=== PATIENT | female | born 1990 | race Caucasian/White ===

== ENCOUNTER 2021-08-26 22:08 | Emergency (ER) | payer BC ==
[2021-08-26] MEDS ORDERED: Morphine 4 MG/ML Syringe IVPUSH ONE (22:33)
[2021-08-26] MEDS ORDERED: Lidocaine 1% with EPINEPHrine 1:100,000 20 ML MDV INJECT ONE ×3 (22:38→23:09)
[2021-08-26] MEDS ORDERED: Midazolam 1 MG/ML 2 ML SDV IVPUSH ONE (22:55)
[2021-08-26] MEDS ORDERED: Lidocaine 1% with EPINEPHrine 1:100,000 20 ML MDV ONE (23:09)
[2021-08-27] MEDS ORDERED: Ketamine 500 mg/10 ML MDV IV ONE ×3 (00:21→01:39)
[2021-08-27] MEDS ORDERED: Morphine 4 MG/ML Syringe IVPUSH ONE (00:46)
[2021-08-27] MEDS ORDERED: Ondansetron 4 MG/2 ML SDV IVPUSH ONE (00:46)
--- NOTE | 2021-08-27 01:04 | EDM.PDOC ---
ED HPI GENERAL MEDICAL PROBLEM - General Chief Complaint: Lower Extremity Injury/Pain Stated Complaint: [facility] Time Seen by Provider: 08/26/21 22:25 Source of Information: Reports: Patient History Limitations: Reports: Intoxication - History of Present Illness INITIAL COMMENTS - FREE TEXT/NARRATIVE: Patient is a 30-year-old female presenting to the emergency room with a complaint of right ankle pain. Patient was out with friends drinking tonight. She states she stepped out of a pickup truck and slipped on some ice. Patient reports immediate pain in her ankle with deformity. Patient was unable to bear weight. Patient did arrive via EMS. She was treated with pain medications prior to arrival. Otherwise, she denies any additional injury. Denies any num bness or tingling of the foot. No prior foot or ankle surgeries. 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: IV/IO Other Treatments JUNIOR BOOKKEEPER: 1 mg dilaudid, 4 mg zofran Right Ankle Pain Score (Numeric/FACES): 7 - Related Data Allergies Allergy/AdvReac Type Severity Reaction Status Date / Time tramadol Allergy Shaking Verified 08/26/21 22:12 Home Meds: Home Meds Sertraline HCl [Zoloft] 200 mg PO BEDTIME 08/26/21 [History] hydrOXYzine HCL [Hydroxyzine HCl] 10 - 15 mg PO DAILY 08/26/21 [History] traZODone HCl [Trazodone HCl] 25 - 50 mg PO BEDTIME 08/26/21 [History] Past Medical History Psychiatric History: Reports: Anxiety Endocrine/Metabolic History: Reports: Obesity/BMI 30+ - Past Surgical History GI Surgical History: Reports: Bariatric Procedure Neurological Surgical History: Reports: Other (See Below) Other Neurological Surgeries/Procedures: meningioma removal Social & Family History - Tobacco Use Tobacco Use Status *Q: Never Tobacco User - Alcohol Use Days Per Week of Alcohol Use: 1 Number of Drinks Per Day: 7 Total Drinks Per Week: 7 - Recreational Drug Use Recreational Drug Use: Yes Drug Use in Last 12 Months: Yes Recreational Drug Type: Reports: Cocaine Recreational Drug Use Frequency: Not Used In Over 1 Month Review of Systems - Review of Systems Review Of Systems: See Below Constitutional: Denies: Weakness Mouth/Throat: Denies: Painful Swallowing Respiratory: Denies: Shortness of Breath Cardiovascular: Denies: Chest Pain GI/Abdominal: Denies: Abdominal Pain Musculoskeletal: Denies: Neck Pain Neurological: Denies: Headache ED EXAM, GENERAL - Physical Exam Exam: See Below ED TRAUMA EXTREMITY PROCEDURES - Joint Reduction Right Ankle Sedation: Conscious Sedation, Hematoma/Fracture Block Local Anesthesia - Lidocaine (Xylocaine): 1% with EPI Local Anesthetic Volume: Other (20) Pre-Procedure NV Status: Normal Post-Procedure NV Status: Normal Technique: Traction/Counter Traction Number of Attempts: 2 Post-Reduction Imaging: Other (Initial reduction was unsuccessful. Subsequent reduction under conscious sedation was successful) Joint Reduction Complications: No Progress/Comments: Inadequate pain relief with hematoma block. Subsequently, conscious sedation with ketamine and propofol was used with appropriate sedation and reduction. Course - Vital Signs Last Recorded V/S: Last Vital Signs Temp 35.9 C L 08/26/21 22:19 Pulse 78 08/27/21 02:40 Resp 17 08/27/21 02:40 BP 103/68 08/27/21 02:40 Pulse Ox 94 L 08/27/21 02:40 - Orders/Labs/Meds Orders: Active Orders 24 hr Category Date Time Status Ankle 2V Rt [CR] Stat Exams 08/27/21 02:23 Taken Ankle Min 3V Rt [CR] Stat Exams 08/26/21 22:33 Taken Ankle Min 3V Rt [CR] Stat Exams 08/26/21 23:58 Taken DME for Discharge [COMM] Stat Oth 08/27/21 02:52 Ordered Meds: Medications Discontinued Medications Generic Name Dose Route Start Last Admin Trade Name Hankq PRN Reason Stop Dose Admin Ketamine HCl 170 mg 08/27/21 00:21 08/27/21 01:28 Ketamine 500 Mg/10 Ml Mdv IV 08/27/21 00:22 170 mg ONETIME ONE Administration Ketamine HCl 85 mg 08/27/21 01:36 08/27/21 01:36 Ketamine 500 Mg/10 Ml Mdv IV 08/27/21 01:37 85 mg ONETIME ONE Administration Ketamine HCl 85 mg 08/27/21 01:39 08/27/21 01:39 Ketamine 500 Mg/10 Ml Mdv IV 08/27/21 01:40 85 mg ONETIME ONE Administration Ketorolac Tromethamine 15 mg 08/27/21 02:13 08/27/21 02:17 Ketorolac 15 Mg/Ml Sdv IVPUSH 08/27/21 02:14 15 mg ONETIME ONE Administration Lidocaine/Epinephrine 20 ml 08/26/21 22:38 08/26/21 22:48 Lidocaine 1% With Epinephrine 1:100,000 20 Ml Mdv INJECT 08/26/21 22:39 20 ml ONETIME ONE Administration Lidocaine/Epinephrine 20 ml 08/26/21 23:08 08/26/21 23:16 Lidocaine 1% With Epinephrine 1:100,000 20 Ml Mdv INJECT 08/26/21 23:09 20 ml ONETIME ONE Administration Lidocaine/Epinephrine 20 ml 08/26/21 23:09 08/27/21 00:14 Lidocaine 1% With Epinephrine 1:100,000 20 Ml Mdv INJECT 08/26/21 23:10 Not Given ONETIME ONE Lidocaine/Epinephrine Confirm 08/26/21 23:09 08/26/21 23:17 Lidocaine 1% With Epinephrine 1:100,000 20 Ml Mdv Administered 08/26/21 23:10 Not Given Dose 20 ml .ROUTE .STK-MED ONE Midazolam HCl 2 mg 08/26/21 22:55 08/26/21 23:10 Midazolam 1 Mg/Ml 2 Ml Sdv IVPUSH 08/26/21 22:56 2 mg ONETIME ONE Administration Morphine Sulfate 6 mg 08/26/21 22:33 08/26/21 22:39 Morphine 4 Mg/Ml Syringe IVPUSH 08/26/21 22:34 6 mg ONETIME ONE Administration Morphine Sulfate 4 mg 08/27/21 00:46 08/27/21 01:10 Morphine 4 Mg/Ml Syringe IVPUSH 08/27/21 00:47 4 mg ONETIME ONE Administration Ondansetron HCl 4 mg 08/27/21 00:46 08/27/21 01:10 Ondansetron 4 Mg/2 Ml Sdv IVPUSH 08/27/21 00:47 4 mg ONETIME ONE Administration Propofol Confirm 08/27/21 01:43 08/27/21 03:07 Propofol 200 Mg/20 Ml Sdv Administered 08/27/21 01:44 Not Given Dose 200 mg .ROUTE .STK-MED ONE Propofol 100 mg 08/27/21 01:45 08/27/21 01:45 Propofol 200 Mg/20 Ml Sdv IVPUSH 08/27/21 01:46 100 mg ONETIME ONE Administration Propofol 50 mg 08/27/21 01:51 08/27/21 01:51 Propofol 200 Mg/20 Ml Sdv IVPUSH 08/27/21 01:52 50 mg ONETIME ONE Administration Departure - Departure Time of Disposition: 02:06 Disposition: Home, Self-Care 01 Clinical Impression: Dislocation of ankle, right, closed, Fracture of fibula, right, closed - Discharge Information Instructions: Closed Reduction for Ankle Fracture or Dislocation, Care After Referrals: Raissa Rivera SEALING MACHINE OPERATOR [Primary Care Provider] - Forms: ED Department Discharge Additional Instructions: Please follow-up with orthopedics this upcoming week. Do not put any weight on this ankle. Use pain medications as prescribed. In addition, you can use ibuprofen every 6-8 hours. Sepsis Event Note (ED) - Evaluation Sepsis Screening Result: No Definite Risk - Focused Exam Vital Signs: Vital Signs Temp Pulse Resp BP Pulse Ox 08/27/21 02:40 78 17 103/68 94 L 08/26/21 22:19 35.9 C L 88 20 123/76 94 L - My Orders Last 24 Hours: My Active Orders 08/26/21 22:33 Ankle Min 3V Rt [CR] Stat 08/26/21 23:58 Ankle Min 3V Rt [CR] Stat 08/27/21 02:23 Ankle 2V Rt [CR] Stat 08/27/21 02:52 DME for Discharge [COMM] Stat - Assessment/Plan Last 24 Hours: My Active Orders 08/26/21 22:33 Ankle Min 3V Rt [CR] Stat 08/26/21 23:58 Ankle Min 3V Rt [CR] Stat 08/27/21 02:23 Ankle 2V Rt [CR] Stat 08/27/21 02:52 DME for Discharge [COMM] Stat Assessment:: Patient is 30-year-old female presenting to the emergency room with right ankle injury. Initial x-ray demonstrates evidence of dislocation as well as fracture of the fibula. Ultimately, patient was successfully reduced in the emergency room. No apparent complications. No other injuries noted. Patient will be discharged with outpatient follow-up. She should see orthopedics within the next 1 week. Return precautions given usual.
[2021-08-27] MEDS ORDERED: Propofol 200 MG/20 ML SDV ONE (01:43)
[2021-08-27] MEDS ORDERED: Propofol 200 MG/20 ML SDV IVPUSH ONE ×2 (01:45→01:51)
[2021-08-27] MEDS ORDERED: Ketorolac 15 MG/ML SDV IVPUSH ONE (02:13)
--- NOTE | 2021-08-27 10:31 | CR ---
Right ankle: 2 views of the right ankle were obtained. Comparison: Prior right ankle study performed on 08/26/21. Displaced lateral malleolus fracture is seen. Continuing displacement is noted of the distal tibia in relation to the talus. Soft tissue swelling is noted. Fiberglas cast or splint is in place. Impression: 1. Displaced fracture with dislocation and soft tissue swelling is noted. Diagnostic code #3
--- NOTE | 2021-08-27 10:32 | CR ---
Right ankle: 3 views of the right ankle were obtained. Comparison: No prior right ankle study is available. Displaced lateral malleolus fracture is noted. Dislocation of the distal tibia in a medial direction to the talus is seen. No additional fracture or other bony abnormality is seen. Soft tissue swelling is noted. Impression: 1. Displaced lateral malleolus fracture with dislocation at the tibiotalar joint. 2. Soft tissue swelling. Diagnostic code #3
--- NOTE | 2021-08-27 10:33 | CR ---
Right ankle: 3 views of the right ankle were obtained. Comparison: Previous study of 08/27/21 (12:17 AM) and previous exam of 08/26/21. Previous dislocation has been reduced. Lateral malleolus fracture is also better aligned. Soft tissue swelling is noted. Impression: 1. Significantly improved dislocation and alignment of fracture as noted above. Diagnostic code #2
== END 2021-08-27 02:40 | disposition home or self-care (01) ==
LOC: JD.ED 22:08 → SUPCPDRO 22:08 → JD.ED 08-27 02:40
DX: S82.61XA Displaced fracture of lateral malleolus of right fibula, initial encounter for closed fracture (principal); E66.9 Obesity, unspecified; Z68.44 Body mass index [BMI] 60.0-69.9, adult; Z88.5 Allergy status to narcotic agent; X50.1XXA Overexertion from prolonged static or awkward postures, initial encounter
CPT/HCPCS: 27788; 73600; 73610; 96374; 96375; 96376; 99152; 99153; 99284; J1885; J2250; J2270; J2405; J2704